=== PATIENT | female | born 1950 | race Asian ===

== ENCOUNTER 2021-03-23 08:22 | Day surgery (SDC) | payer OTHER ==
[2021-03-21 10:41] LABS: BASOPHILS % (AUTO) 2 % (0-1); EOSINOPHILS % (AUTO) 3 % (1-7); LYMPHOCYTES % (AUTO) 29 % (22-44); MEAN CORPUSCULAR HEMOGLOBIN 25.8 pg (27.0-34.8); MEAN CORPUSCULAR HGB CONC 31.9 g/dL (32.4-35.8); MEAN PLATELET VOLUME 8.9 fL (7.4-10.4); MONOCYTES % (AUTO) 7 % (2-9); NEUTROPHILS % (AUTO) 61 % (42-75); PLATELET COUNT 273 x10^3/uL (130-400); RED BLOOD COUNT 5.39 x10^6/uL (3.82-5.3); RED CELL DISTRIBUTION WIDTH 13.5 % (9.6-15.2)
[2021-03-21 10:47] LABS: MD NO
[2021-03-21 10:48] LABS: ANION GAP 4 mmol/L (5-15); CALCIUM 9.1 mg/dL (8.5-10.1); CHLORIDE 107 mmol/L (98-107); CREATININE 0.69 mg/dL (0.55-1.02)
[2021-03-21 10:51] LABS: INTERNATIONAL NORMALIZED RATIO 0.99 (0.93-1.1); PROTHROMBIN TIME 10.6 Seconds (9.6-11.5)
[~2021-03-23] VITALS: Ht 152.4 cm; Wt 51.6 kg
[~2021-03-23 08:22] MED LIST: ACETAMINOPHEN 650 MG/20.3 ML UDC PO PRN; BISACODYL 10 MG SUPP PR PRN; BUPIVACAINE/PF 0.25% ONE; CEFAZOLIN 1,000 MG ONE; CEFAZOLIN PMX 2GM/50ML 50 ML IVPB SCH; DEXAMETHASONE 4 MG/ML, 1ML ONE; DIPHENHYDRAMINE 50 MG CAPSULE PO PRN; EPINEPHRINE 1 MG/ML, 1ML ONE; FENTANYL PF 250 MCG/5ML ONE; GLYCOPYRROLATE 0.2MG/1ML, 5ML ONE; HYDROcodone/APAP 5/325 TABLET PO PRN; HYDROmorphone 1 MG/ML, 1ML INJ IV PRN; KETOROLAC 60 MG/2 ML ONE; MAGNESIUM HYDROXIDE 8%, 30ML UDC PO PRN; NEOSTIGMINE 1 MG/ML, 10ML ONE; NS + 20MEQ KCL 1,000 ML IV SCH; ONDANSETRON 2MG/ML, 2ML IV PRN; ONDANSETRON 2MG/ML, 2ML ONE; ONDANSETRON 4 MG TABLET PO PRN; OXYcodone IR 5MG TABLET PO PRN; PROPOFOL 10 MG/ML, 20ML ONE; ROCURONIUM 10MG/ML,5ML ONE; ROPIvacaine/PF 0.5%, 20 ML ONE; ROPIvacaine/PF 0.5%, 30 ML ONE; SENNA/DOCUSATE TABLET PO PRN; SODIUM CHLORIDE 0.9% 50 ML ONE; TRANEXAMIC ACID 100 MG/ML, 10ML ONE; VANCOMYCIN 1,000 MG ONE; ZOLPIDEM 5MG TABLET PO PRN
[2021-03-23 08:45] VITALS: BP 166/67
[2021-03-23] MEDS ORDERED: ACETAMINOPHEN 500 MG TABLET PO ONE (09:00)
[2021-03-23] MEDS ORDERED: CHLORHEXIDINE 15 ML UDC PO ONE (09:00)
[2021-03-23] MEDS ORDERED: LACTATED RINGERS 1,000 ML IV SCH (09:00)
[2021-03-23] MEDS ORDERED: DOCUSATE 100 MG CAPSULE PO SCH (09:00)
[2021-03-23] MEDS ORDERED: GABAPENTIN 300 MG CAPSULE PO ONE (09:00)
[2021-03-23] MEDS ORDERED: CHLORHEXIDINE 15 ML UDC ONE (09:12)
[2021-03-23] MEDS ORDERED: LABETALOL 5MG/ML, 20ML IV PRN (09:30)
[2021-03-23] MEDS ORDERED: HYDROmorphone 1 MG/ML, 1ML INJ IVPush PRN (09:30)
[2021-03-23] MEDS ORDERED: morphine SULFATE 10 MG/ML, 1ML IVPush PRN (09:30)
[2021-03-23] MEDS ORDERED: hydrALAzine 20 MG/ML, 1ML IV PRN (09:30)
[2021-03-23] MEDS ORDERED: PROMETHAZINE 25 MG/ML, 1ML IVPush PRN (09:30)
[2021-03-23] MEDS ORDERED: OXYcodone 5 MG/5 ML ORAL.SOL UDC PO PRN (09:30)
[2021-03-23] MEDS ORDERED: ACETAMINOPHEN 325 MG TABLET PO PRN (09:30)
[2021-03-23] MEDS ORDERED: HALOPERIDOL 5 MG/ML IV PRN (09:30)
[2021-03-23] MEDS ORDERED: MEPERIDINE/PF 25MG/0.5ML IVPush PRN (09:30)
[2021-03-23] MEDS ORDERED: PHENYLEPHRINE 10 MG/ML ONE (09:41)
[2021-03-23] MEDS ORDERED: FENTANYL PF 100 MCG/2ML ONE ×2 (10:15→11:20)
[2021-03-23] MEDS: FENTANYL PF 100 MCG/2ML IV PRN ×2 (11:22→11:42)
[2021-03-23] MEDS ORDERED: OXYcodone 5 MG/5 ML ORAL.SOL UDC ONE (11:44)
[2021-03-23] MEDS ORDERED: ROPIvacaine/PF 0.5%, 20 ML ONE (14:52)
[2021-03-23] MEDS ORDERED: ASPIRIN 81 MG TABLET EC PO SCH (18:00)
[2021-03-24] MEDS ORDERED: DEXAMETHASONE 4 MG/ML, 1ML IVPush SCH (06:00)
== END 2021-03-23 14:40 | disposition home or self-care (01) ==
LOC: OUT 08:22
PROVIDERS: ATTEND Orthopaedic Surgery
DX: M17.11 Unilateral primary osteoarthritis, right knee (principal); M21.061 Valgus deformity, not elsewhere classified, right knee; M25.761 Osteophyte, right knee; G89.18 Other acute postprocedural pain; Z20.822 Contact with and (suspected) exposure to COVID-19; Z79.01 Long term (current) use of anticoagulants; Z79.899 Other long term (current) drug therapy
CPT/HCPCS: 27447; 36415; 64447; 80048; 83036; 85025; 85610; 85730; 87081; 93005; 97161; 97166; C1713; C1776; J0171; J0690; J1100; J1885; J2370; J2405; J2704; J2710; J2795; J3010; J3370; J7120; U0003; U0005